=== PATIENT | female | born 1990 | race Caucasian/White ===

== ENCOUNTER 2019-05-10 20:23 | Emergency (ER) | payer OTHER ==
--- NOTE | 2019-05-10 20:25 | UC ---
Complaint Female HPI - HPI Summary HPI Summary: 29 yo female presents with urinary burning and bladder pressure for the last 4 days. Today she noticed some lower back pain. She took AZO the last 2 days which has helped her symptoms, but was not able to seek medical eval until today due to work. She denies fever, chills, abdominal pain, n/v, hematuria - History Of Current Complaint Stated Complaint: BURNING URINATION Time Seen by Provider: 05/10/19 20:25 Hx Obtained From: Patient Onset/Duration: Gradual Onset Timing: Constant Severity Initially: Mild Severity Currently: Moderate Pain Intensity: 5 Pain Scale Used: 0-10 Numeric - Allergies/Home Medications Allergies/Adverse Reactions: Allergies Allergy/AdvReac Type Severity Reaction Status Date / Time amoxicillin [From Augmentin] Allergy STOMACH Verified 05/10/19 20:36 PAIN, INTESTINAL PROBLEMS clavulanic acid Allergy STOMACH Verified 05/10/19 20:36 [From Augmentin] PAIN, INTESTINAL PROBLEMS clarithromycin [From Biaxin] AdvReac STOMACH Verified 05/10/19 20:36 PAIN, INTESTINAL PROBLEMS Home Medications: Home Medications Levonorgestrel-Ethin Estradiol [Jolessa 0.15 mg-0.03 mg Tablet] 1 each PO DAILY 05/10/19 [History Confirmed 05/10/19] Loratadine [Claritin 10 MG CAP] 10 mg PO DAILY 05/10/19 [History Confirmed 05/10] Vitamins* 05/10/19 [History] PMH/Surg Hx/FS Hx/Imm Hx Endocrine History: Diabetes - Surgical History Surgical History: None - Family History Known Family History: Positive: Non-Contributory - Social History Occupation: Employed Full-time Lives: With Family Alcohol Use: Occasionally Substance Use Type: None Smoking Status (MU): Never Smoked Tobacco Review of Systems All Other Systems Reviewed And Are Negative: Yes Constitutional: Positive: Negative Skin: Positive: Negative Respiratory: Positive: Negative Cardiovascular: Positive: Negative Genitourinary: Positive: Dysuria Neurovascular: Positive: Negative Neurological: Positive: Negative Psychological: Positive: Negative Physical Exam - Summary Physical Exam Summary: GENERAL: NAD. WDWN. No pain distress. SKIN: No rashes, sores, lesions, or open wounds. NECK: Supple. Nontender. No lymphadenopathy. CHEST: CTAB. No r/r/w. No accessory muscle use. Breathing comfortably and in no distress. CV: RRR. Without m/r/g. Pulses intact. Cap refill <2seconds ABDOMEN: Soft. NTTP. Mild bl CVA TTP. Bowel sounds present NEURO: Alert. PSYCH: Age appropriate behavior. Triage Information Reviewed: Yes Vital Signs: Vital Signs: Temp Pulse Resp BP Pulse Ox 98.1 F 90 16 143/76 98 05/10/19 20:32 05/10/19 20:32 05/10/19 20:32 05/10/19 20:32 05/10/19 20:32 Vital Signs Reviewed: Yes Complaint Female Dx - Course Course Of Treatment: UA positive. Will treat with keflex and send her urine for culture. - Differential Dx/Diagnosis Provider Diagnosis: UTI (urinary tract infection) Discharge - Sign-Out/Discharge Documenting (check all that apply): Patient Departure All imaging exams completed and their final reports reviewed: No Studies - Discharge Plan Condition: Stable Disposition: HOME Prescriptions: Cephalexin CAP* [Keflex CAP*] 500 mg PO BID #10 cap Phenazopyridine 200 mg (NF) [Pyridium 200 MG tab *] 200 mg PO TID #6 tab Patient Education Materials: Urinary Tract Infection in Women (DC) Referrals: Elba Spencer MD [Primary Care Provider] - Additional Instructions: If you develop a fever, shortness of breath, chest pain, new or worsening symptoms - please call your PCP or go to the ED immediately. Your blood pressure was slightly elevated at todays visit. Please see your primary provider within 4 weeks for recheck and re-evaluation. - Billing Disposition and Condition Condition: STABLE Disposition: Home
[2019-05-10 20:36] VITALS: BP 143/76
[2019-05-10] MEDS ORDERED: Cephalexin CAP* 500 MG PO ONE ×2 (20:56→21:09)
[2019-05-10] MEDS ORDERED: Phenazopyridine TAB* 100 MG PO ONE ×2 (20:56→21:09)
== END 2019-05-10 21:15 | disposition home or self-care (01) ==
LOC: UCEAST 20:23
DX: N39.0 Urinary tract infection, site not specified (principal); E11.9 Type 2 diabetes mellitus without complications
CPT/HCPCS: 81002; 87077; 87086; 87186; 99203; A9270-GY; G0463